=== PATIENT | female | born 1995 ===

== ENCOUNTER 2024-06-15 18:40 | Emergency (ER) | payer SELFPAY ==
[2024-06-15 18:41] VITALS: BP 118/71; PULSE 141; RESP 16; TEMP 37.2; O2SAT 100
--- NOTE | 2024-06-15 19:52 | PC.NURSE ---
Pt ambulated to front desk clerk and stated she was leaving and to take her off the list.
== END 2024-06-15 23:03 | disposition left against medical advice (07) ==
LOC: ANHED 19:58
DX: R50.82 Postprocedural fever (principal)
CPT/HCPCS: 99199